=== PATIENT | female | born 1935 | race Caucasian/White ===

== ENCOUNTER 2016-08-25 08:09 | Emergency (ER) | payer MEDICARE, OTHER ==
[2016-08-25 08:15] VITALS: BP 142/80
[2016-08-25] MEDS ORDERED: Albuterol HFA INHALER* 8 gm MDI INH ONE (08:33)
--- NOTE | 2016-08-29 12:22 | UC ---
kip Penaloza Timothy, scribed for Elvira Moran MD on 08/25/16 at 0823 . Throat Pain/Nasal Bernard HPI - HPI Summary HPI Summary: Gabbi Trivedi is a 81 yo female presenting to [facility] with 8/10 sore throat without fever for the past week. She also c/o mild productive cough with thick white sputum. Pt states she will be traveling to [place] on a cruise 09/05/16 and wants to make sure she is ok. Her MHx includes heart murmur, HTN, HLD, sciatic nerve, hysterectomy, herniated disk L5-S1, back problems, DM. - History of Current Complaint Chief Complaint: UCRespiratory Stated Complaint: THROAT PAIN Time Seen by Provider: 08/25/16 08:14 Hx Obtained From: Patient Onset/Duration: Gradual Onset, Lasting Days, Still Present Severity: Moderate Pain Intensity: 8 Pain Scale Used: 0-10 Numeric Associated Signs & Symptoms: Negative: Fever - Allergies/Home Medications Allergies/Adverse Reactions: Allergies Allergy/AdvReac Type Severity Reaction Status Date / Time Nifedipine [From Procardia] Allergy Unknown Verified 08/25/16 08:14 Reaction Details Sulfa Drugs Allergy Hallucinati Verified 08/25/16 08:14 ons Home Medications: Home Medications Amlodipine Besylate-Atorvastat [Amlodipine Besylate/Atorv 5-10 mg] 1 tab PO [History] Aspirin [Aspirin Adult Low Dose 81 MG] 81 mg PO 08/25/16 [History] Atorvastatin* [Lipitor*] 40 mg PO 1700 08/25/16 [History Confirmed 08/25/16] Pregabalin CAP(*) [Lyrica CAP(*)] 25 mg PO TID 08/25/16 [History Confirmed 08/25] Valsartan-Hydrochlorothiazide [Valsartan/Hydrochlorothia] 1 tab PO 08/25/16 [ History] glipiZIDE TAB* [Glucotrol TAB*] 10 mg PO DAILY 08/25/16 [History Confirmed 08/25] metFORMIN* [Glucophage 500 MG TAB *] 500 mg PO BID 08/25/16 [History Confirmed 08/25/16] PMH/Surg Hx/FS Hx/Imm Hx Endocrine History: Diabetes Cardiovascular History: Hypertension, Other Other Cardiovascular History: murmur, HLD - Surgical History Surgical History: Yes Surgery Procedure, Year, and Place: 1971 OPEN CHOLECYSTECTOMY, [id number] HYSTERECTOMY, [id number] & 1997 TIBIAL TENDON TRANSFER, [facility], [id number] RUPTURED DISC LOWER BACK, - [facility] - [id number] BILATERAL CATARACT REMOVAL WITH IOL IMPLANTS, [id number] ABDOMINAL FLUSH FOR INFECTION IN ABDOMINAL CAVITY- [facility] [place] - Family History Known Family History: Positive: Diabetes - Social History Alcohol Use: None Substance Use Type: None Smoking Status (MU): Never Smoked Tobacco Review of Systems Constitutional: Negative Skin: Negative Eyes: Negative ENT: Sore Throat Respiratory: Cough - thick white sputum Cardiovascular: Negative Gastrointestinal: Negative Genitourinary: Negative Motor: Negative Neurovascular: Negative Musculoskeletal: Negative Neurological: Negative Psychological: Negative All Other Systems Reviewed And Are Negative: Yes Physical Exam Triage Information Reviewed: Yes Appearance: Well-Nourished Vital Signs: Initial Vital Signs Temp 97.0 F 08/25/16 08:10 Pulse 90 08/25/16 08:10 Resp 20 08/25/16 08:10 BP 142/80 08/25/16 08:10 Pulse Ox 97 08/25/16 08:10 Vital Signs Reviewed: Yes Eye Exam: Normal ENT: Positive: Pharyngeal erythema - posterior, bilaterally, TM dull - on left , doran, Other: - cerumen impaction right ear Neck: Positive: Supple, No Lymphadenopathy, Other: - no adenopathy appreciated Respiratory: Positive: Chest non-tender, Lungs clear, No respiratory distress, Wheezing - inspiratory and expriatory, no retractions, Other: - no dyspnea, tachypnea Cardiovascular: Positive: RRR, Pulses Normal, Brisk Capillary Refill, Murmur:Sys :Grade _?_/ - II. Negative: No Murmur Abdominal Exam: Normal Abdomen Description: Positive: Nontender, No Organomegaly, Soft Bowel Sounds: Positive: Present Musculoskeletal Exam: Normal Musculoskeletal: Positive: Strength Intact Neurological Exam: Normal - nonfocal, grossly intact Psychological Exam: Normal - conversing easily and appropriately Skin Exam: Normal Skin: Negative: rashes Throat Pain/Nasal Course/Dx - Course Assessment/Plan: Gabbi Trivedi is an 81 yo female presenting to [facility] with 8/10 sore throat without fever for the past 5 days. Her Group A Rapid Strep Test is negative. Pt medication list reviewed this visit. After clinical examination and review of her lab studies, she will be discharged home with pharyngitis, right ear cerumen impaction, wheezing, bronchospasm, bronchitis with appropriate isntructions. - Differential Dx/Diagnosis Differential Diagnosis/HQI/PQRI: Pharyngitis, Other - bronchitis Provider Diagnoses: pharyngitis, right ear cerumen impaction, wheezing, bronchospasm, bronchitis Discharge - Discharge Plan Condition: Stable Disposition: HOME Prescriptions: Ciprofloxacin TAB* [Cipro 500 MG TAB*] 500 mg PO BID #14 tab Patient Education Materials: Pharyngitis (ED), Cerumen Impaction (ED), Acute Bronchitis (ED), Bronchospasm (ED) Referrals: Benita Sexton MD [Primary Care Provider] - 1 Week Additional Instructions: Follow up with your new primary care physician as scheduled next week. Seek medical attention for worse or new problems in the meantime. Avoid excess sun exposure while taking ciprofloxacin. Stop ciprofloxacin if blood sugars drop. Drink plenty of fluids. The documentation as recorded by the kip mejia Timothy accurately reflects the service I personally performed and the decisions made by me, Elvira Moran MD.
== END 2016-08-25 08:58 | disposition home or self-care (01) ==
LOC: UCEAST 08:09
DX: J02.9 Acute pharyngitis, unspecified (principal); H61.21 Impacted cerumen, right ear; R06.2 Wheezing; J20.9 Acute bronchitis, unspecified; E11.9 Type 2 diabetes mellitus without complications; Z79.84 Long term (current) use of oral hypoglycemic drugs; I10 Essential (primary) hypertension; R01.1 Cardiac murmur, unspecified; E78.5 Hyperlipidemia, unspecified; Z88.2 Allergy status to sulfonamides
CPT/HCPCS: 87651; 99213; A9270-GY; G0463

== ENCOUNTER 2018-05-22 09:33 | Emergency (ER) | payer MEDICARE, OTHER ==
--- NOTE | 2018-05-22 10:19 | ED ---
Complex/Multi-Sys Presentation - HPI Summary HPI Summary: An 83 y/o F presents to ED with c/o generalized fatigue onset today. Associated sx: unsteady gait. She denies fever, pedal edema, SOB, bowel changes, appetite changes. Pt has known PNA and cough for the past three weeks. She is on Doxycycline bid and started it four days ago. Patient was seen at [facility] this AM, they did not do a CXR due to the known PNA. PMHx: DM, HTN, mild heart murmur. PCP is Dr. Salguero at [facility]. - History Of Current Complaint Chief Complaint: EDGeneral Time Seen by Provider: 05/22/18 10:16 Hx Obtained From: Patient Onset/Duration: Sudden Onset, Lasting Hours - onset today, Still Present Timing: Constant Severity Currently: Moderate Severity Initially: Moderate Associated Signs And Symptoms: Positive: Other - pos: unsteady gait. neg: bowel changes. Negative: SOB, Edema, Decreased Oral Intake, Fever - Allergies/Home Medications Allergies/Adverse Reactions: Allergies Allergy/AdvReac Type Severity Reaction Status Date / Time nifedipine [From Procardia] Allergy unk Verified 05/22/18 09:46 Sulfa (Sulfonamide Allergy Hallucinati Verified 05/22/18 09:46 Antibiotics) ons PMH/Surg Hx/FS Hx/Imm Hx Previously Healthy: No Endocrine/Hematology History: Reports: Hx Diabetes - po meds Cardiovascular History: Reports: Hx Hypertension - CONTROL WITH MEDICATION, Other Cardiovascular Problems/Disorders - CHOLESTEROL CONTROL WITH MEDICATION Denies: Hx Pacemaker/ICD Musculoskeletal History: Reports: Hx Back Problems Sensory History: Reports: Hx Contacts or Glasses - GLASSES, Hx Hearing Aid - BILATERAL HEARING AID Opthamlomology History: Reports: Hx Contacts or Glasses - GLASSES Neurological History: Reports: Other Neuro Impairments/Disorders - SCIATIC NERVE Psychiatric History: Denies: Hx Panic Disorder - Cancer History Hx Chemotherapy: No Hx Radiation Therapy: No - Surgical History Surgery Procedure, Year, and Place: 1971 OPEN CHOLECYSTECTOMY, [id number] HYSTERECTOMY, [id number] & 1997 TIBIAL TENDON TRANSFER, [id number] RUPTURED DISC LOWER BACK, - [facility] - [id number] BILATERAL CATARACT REMOVAL WITH IOL IMPLANTS, [id number] [place]OM[place] [facility] [place] Anesthesia Reactions: No Infectious Disease History: No Infectious Disease History: Denies: Traveled Outside the [place] in Last 30 Days - Family History Known Family History: Positive: Diabetes - Social History Occupation: Retired Lives: With Family Alcohol Use: None Hx Substance Use: No Substance Use Type: Reports: None Hx Tobacco Use: No Smoking Status (MU): Never Smoked Tobacco Review of Systems Positive: Fatigue. Negative: Fever Negative: Shortness Of Breath Negative: Other - neg: bowel changes, appetite changes Negative: Edema Neurological: Other - pos: unsteady gait All Other Systems Reviewed And Are Negative: Yes Physical Exam - Summary Physical Exam Summary: Appearance: The patient is well-nourished in no acute distress and in no acute pain. Skin: The skin is warm and dry and skin color reflects adequate perfusion. HEENT: The head is normocephalic and atraumatic. The pupils are equal and reactive. The conjunctivae are clear and without drainage. Nares are patent and without drainage. Mouth reveals moist mucous membranes and the throat is without erythema and exudate. The external ears are intact. The ear canals are patent and without drainage. The tympanic membranes are intact. Neck: the neck is supple with full range of motion and non-tender. There are no carotid bruits. There is no neck vein distension. Respiratory: Chest is non-tender. Diffuse rhonchi. Cardiovascular: Heart is regular rate and rhythm. Systolic ejection murmur. There is no peripheral edema and pulses are symmetrical and equal. Abdomen: The abdomen is soft and non-tender. There are normal bowel sounds heard in all four quadrants and there is no organomegaly palpated. Musculoskeletal: There is no back tenderness noted. Extremities are non-tender with full range of motion. There is good capillary refill. There is no peripheral edema or calf tenderness elicited. Neurological: Patient is alert and oriented to person, place and time. The patient has symmetrical motor strength in all four extremities. Cranial nerves are grossly intact. Deep tendon reflexes are symmetrical and equal in all four extremities. Psychiatric: The patient has an appropriate affect and does not exhibit any anxiety or depression. Triage Information Reviewed: Yes Vital Signs On Initial Exam: Initial Vitals Temp Pulse Resp BP Pulse Ox 97.5 F 86 19 140/74 94 05/22/18 09:44 05/22/18 09:44 05/22/18 09:44 05/22/18 09:44 05/22/18 09:44 Vital Signs Reviewed: Yes Diagnostics - Vital Signs Vital Signs Temp Pulse Resp BP Pulse Ox 05/22/18 09:44 97.5 F 86 19 140/74 94 - Laboratory Result Diagrams: 05/22/18 11:00 05/22/18 11:00 Lab Statement: Any lab studies that have been ordered have been reviewed, and results considered in the medical decision making process. - Radiology CXR Radiology Interpretation Completed By: Radiologist Summary of Radiographic Findings: IMPRESSION: No active cardiopulmonary disease. ED provider has reviewed this report. - EKG 1039 Cardiac Rate: NL - 66 bpm EKG Rhythm: Sinus Rhythm Summary of EKG Findings: RBBB changed from EKG on 03/13/12. Re-Evaluation - Re-Evaluation 1 Re-Evaluation Time: 13:40 Change: Improved Comment: Pt is feeling better, will discharge home. Complex Multi-Symp Course/Dx Course Of Treatment: Ms. Trivedi went to [facility] 4 days ago for a cough and was started on doxycycline. Today she woke up with extreme fatigue and comes in without concern. She is still coughing quite a bit and is not aware of having any fevers. She denies any chest pain or shortness of breath. She was nontoxic in appearance with stable vital signs. Chest x-ray was unremarkable for pneumonia. Labs did show a very slight leukocytosis but were otherwise consistent with previous labs. She did feel improved some with some fluids and I will treat her bronchitis or early pneumonia and change her antibiotic at this point. - Diagnoses Provider Diagnoses: Bronchitis Discharge - Sign-Out/Discharge Documenting (check all that apply): Patient Departure - DC Patient Received Moderate/Deep Sedation with Procedure: No - Discharge Plan Condition: Stable Disposition: HOME Prescriptions: Levofloxacin TAB* [Levaquin TAB*] 750 mg PO DAILY #10 tab Patient Education Materials: Levofloxacin (By mouth), Acute Bronchitis (ED) Referrals: Irma Salguero MD [Primary Care Provider] - 2 Days Additional Instructions: Please return to the ED if you experience new or worsening symptoms. Follow up with your primary care provider in 2-3 days. - Billing Disposition and Condition Condition: STABLE Disposition: Home - Attestation Statements Document Initiated by Scribe: Yes Documenting Scribe: [facility] Provider For Whom Scribe is Documenting (Include Credential): Dr. Joseph Ulloa MD Scribe Attestation: I, Amina Romo, scribed for Dr. Joseph Ulloa MD on 05/22/18 at 1953. Scribe Documentation Reviewed: Yes Provider Attestation: The documentation as recorded by the dontrellibtoñito, Amina Romo accurately reflects the service I personally performed and the decisions made by me, Dr. Joseph Ulloa MD Status of Scribe Document: Viewed
[2018-05-22 11:13] LABS: ABS Basophils 0.1 10^3/ul (0-0.2); ABS Eosinophils 0 10^3/ul (0-0.6); ABS Lymphocytes 1.3 10^3/ul (1.0-4.8); ABS Monocytes 0.6 10^3/ul (0-0.8); ABS Neutrophils 10.5 10^3/ul (1.5-7.7); ABS Nucleated RBC 0 10^3/ul; Eosinophil % 0.4 %; Hematocrit 33 % (33-41); Hemoglobin 10.6 g/dL (12.0-16.0); Lymphocyte % 10.5 %; Mean Corpuscular HGB Conc 33 g/dL (31-36); Mean Corpuscular Hemoglobin 28 pg (27-31); Mean Corpuscular Volume 87 fL (80-97); Mean Platelet Volume 8.2 fL (7.4-10.4); Nucleated Red Blood Cells % 0; Platelet Count 316 10^3/uL (150-450); Red Blood Count 3.74 10^6 /uL (3.70-4.87); Red Cell Distribution Width 14 % (10.5-15); White Blood Count 12.6 10^3/uL (3.5-10.8)
[2018-05-22 12:02] LABS: Albumin 4.1 g/dL (3.2-5.2); Albumin/Globulin Ratio 1.3 (1-3); C Reactive Protein 3.17 mg/L (<8.01); Calcium 9.6 mg/dL (8.6-10.3); EGFR African American 56.4 (>60); EGFR Non-African American 46.6 (>60); Globulin 3.2 g/dL (2-4); Magnesium 1.4 mg/dL (1.9-2.7); Potassium 4.6 mmol/L (3.5-5.0); Total Bilirubin 0.4 mg/dL (0.2-1.0); Total Protein 7.3 g/dL (6.4-8.9)
[2018-05-22 12:14] LABS: TSH (Thyroid Stimulating Horm) 0.84 mcIU/mL (0.34-5.60)
[2018-05-22 14:15] VITALS: BP 151/78
== END 2018-05-22 14:13 | disposition home or self-care (01) ==
LOC: ED 09:33
DX: J40 Bronchitis, not specified as acute or chronic (principal); I45.10 Unspecified right bundle-branch block; I10 Essential (primary) hypertension; E11.9 Type 2 diabetes mellitus without complications; E78.00 Pure hypercholesterolemia, unspecified; R25.1 Tremor, unspecified; Z79.84 Long term (current) use of oral hypoglycemic drugs; Z88.8 Allergy status to other drugs, medicaments and biological substances; Z88.2 Allergy status to sulfonamides; Z79.899 Other long term (current) drug therapy
CPT/HCPCS: 36415; 71046; 80053; 83605; 83735; 84443; 84484; 85025; 86140; 87040; 93005; 99283